=== PATIENT | male | born 1975 | race Caucasian/White ===

== ENCOUNTER 2020-09-26 04:04 | Emergency (ER) | payer MEDICAID, SELFPAY ==
[2020-09-26 04:24] VITALS: BP 156/87; PULSE 81; RESP 16; TEMP 36.9; O2SAT 99; BMI 27.1
--- NOTE | 2020-09-26 05:28 | ED_ITS ---
HPI - Ear Problem General Chief complaint: Ear Problems Stated complaint: ear pain Time Seen by Provider: 09/26/20 05:28 Source: patient Mode of arrival: ambulatory History of Present Illness HPI Narrative: 45-year-old male presents with complaint of right ear pain for 3 days without associated fever, chills, sore throat, or cough. Patient states that he uses Q-tips and today he noted that there was a small amount of blood on the Q-tip today. Otherwise, patient denies any other acute complaints. Related Data Allergies Allergy/AdvReac Type Severity Reaction Status Date / Time No Known Allergies Allergy Verified 09/26/20 04:24 Review of Systems Review of Systems: Pertinent positives and negatives as stated in HPI 10 point review of systems is otherwise negative. [facility] Past Medical History Source: nursing notes reviewed Social History Social History Advance Directives: No Advance Directives Information Provided: No Physical Exam Vital Signs: Vital Signs: Last Vital Signs Temp 98.5 F 09/26/20 04:24 Pulse 81 09/26/20 04:24 Resp 16 09/26/20 04:24 BP 156/87 H 09/26/20 04:24 Pulse Ox 99 09/26/20 04:24 Body Mass Index 27.1 VITAL SIGNS: Reviewed. GENERAL: Well developed, well nourished, in no acute distress. HEAD: Normocephalic/atraumatic EYES: PERRLA, EOMI EARS: Ext canals without abnormality, TMs non-bulging and non-erythematous NOSE: Nares patent bilateral OROPHARYNX: no oral lesions noted, posterior pharynx clear and non-erythematous without noted tonsillar enlargement/erythema/exudates NECK: Supple, no adenopathy LUNGS: Normal breath sounds. No adventitious sounds or accessory muscle use. SpO2<99> CARDIOVASCULAR: Regular rate and rhythm without noted murmurs ABDOMEN: Soft, non-tender, non-distended with bowel sounds. NEUROLOGIC: Alert and oriented x 4. . Course Course Course Narrative: 45-year-old male with history and clinical presentation consistent with mild irritation of the right ear earlier in the evening without residual stigmata of bleeding and no evidence of perforation/infection. Patient was reassured and discharged in stable condition. Discharge Plan Discharge Clinical Impression: Ear pain, right Patient Disposition: Home, Self-Care Instructions: Earache (ED) Additional Instructions: Recommend to stop using Q-tips to clean your ears. Return to the ER for acute worsening of symptoms. Referrals: Physician,Unknown [Primary Care Provider] - 2 days
== END 2020-09-26 05:45 | disposition home or self-care (01) ==
PROVIDERS: Emergency Provider Student in an Organized Health Care Education/Training Program
DX: H92.01 Otalgia, right ear (principal)
CPT/HCPCS: 99282; 99283